=== PATIENT | female | born 1945 | race Hispanic/Latino ===

== ENCOUNTER 2021-02-22 09:36 | Inpatient (IN) | payer MEDICAID, OTHER ==
[2021-02-22] VITALS (9 sets, daily range): BP systolic 91–128; BP diastolic 49–81
[~2021-02-22] VITALS: Ht 137.2 cm; Wt 52.9 kg
[2021-02-22 09:58] LABS: APPEARANCE,URINE CLOUDY (CLEAR); BILIRUBIN,URINE NEGATIVE (NEGATIVE); COLOR,URINE YELLOW (YELLOW); GLUCOSE, URINE (UA) NEGATIVE (NEGATIVE); KETONES,URINE NEGATIVE (NEGATIVE); LEUKOCYTE ESTERASE ,URINE LARGE (NEGATIVE); NITRATE,URINE NEGATIVE (NEGATIVE); OCCULT BLOOD,URINE TRACE-LYSED (NEGATIVE); PH,URINE 6.5 (5.0-8.0); PROTEIN,URINE TRACE mg/dL (NEGATIVE)
[2021-02-22 10:03] LABS: BACTERIA,URINE Few /HPF (None Seen); RBC,URINE 0-1 /HPF (0-1); SQUAMOUS EPITHELIAL CELL,UR Few /HPF (0-2)
[2021-02-22 10:06] LABS: BASOPHILS % (AUTO) 0.4 % (0.0-5.0); HEMATOCRIT 31.2 % (36-48); LYMPHOCYTES % (AUTO) 13.6 % (21.0-51.0); MEAN CORPUSCULAR HGB CONC 33.7 g/dL (32.0-36.0); MEAN CORPUSCULAR VOLUME 95.1 fL (79-99); MONOCYTES % (AUTO) 7.4 % (3.0-13.0); NEUTROPHILS % (AUTO) 77.3 % (40.0-77.0); PLATELET COUNT (AUTO) 196 K/uL (130-400); RED BLOOD CELL COUNT(AUTO) 3.28 MIL/uL (4.00-5.50); RED CELL DISTRIBUTION WIDTH 13.8 % (11.0-15.5); WHITE BLOOD COUNT (AUTO) 10.1 K/uL (4.8-10.8)
[2021-02-22 10:22] LABS: ALBUMIN 3.6 g/dL (3.5-5.0); BILIRUBIN,TOTAL 0.6 mg/dL (0.2-1.0); CREATININE 1.6 mg/dL (0.5-1.5); POTASSIUM 3.3 mmol/L (3.5-5.1); TOTAL PROTEIN, SERUM 7.5 g/dL (6.0-8.3)
[2021-02-22 10:31] LABS: CREATINE KINASE, TOTAL 16 U/L (21-232); LIPASE 99 U/L (114-286); MYOGLOBIN 38 ng/mL (10-92); TROPONIN I < 0.04 ng/mL (0.00-0.06)
[2021-02-22] MEDS ORDERED: ONDANSETRON 4MG INJ ONE (11:34)
[2021-02-22] MEDS ORDERED: MORPHINE 2 MG SYG ONE (11:35)
[2021-02-22] MEDS ORDERED: ONDANSETRON 4MG INJ IV PRN (13:15)
[2021-02-22] MEDS ORDERED: ACETAMINOPHEN 325 MG TAB PO PRN ×2 (13:15)
[2021-02-22] MEDS ORDERED: LACTULOSE 20 GM/30 ML UDCUP PO PRN (13:15)
[2021-02-22] MEDS: 0.9%NACL 1000ML 1,000 ML IV SCH ×2 (13:15→22:20)
[2021-02-22] MEDS ORDERED: 0.9%NACL 1000ML 1,000 ML IV ONE ×2 (13:31→22:19)
[2021-02-22] MEDS ORDERED: ZOSYN 3.375GM+NS 50ML 50 ML IV ONE ×2 (13:31→15:22)
[2021-02-22] MEDS ORDERED: MORPHINE 2 MG SYG IVP PRN (14:00)
[2021-02-22] MEDS ORDERED: POTASSIUM CHLORIDE 10MEQ/100ML 10 MEQ/100 ML ML IV SCH (14:00)
[2021-02-22 15:40] LABS: CREATININE 1.4 mg/dL (0.5-1.5); POTASSIUM 3.9 mmol/L (3.5-5.1)
[2021-02-22] MEDS ORDERED: ROSU20TA31 PO (16:06)
[2021-02-22] MEDS ORDERED: ATEN50TA PO (16:06)
[2021-02-22] MEDS ORDERED: ESOM40VI2 IV (16:06)
[2021-02-22] MEDS ORDERED: IOHEXOL 350 MG/ML 100ML INFUS..BTL IV ONE (17:38)
[2021-02-22 17:49] LABS: HEMATOCRIT 30.5 % (36-48)
[2021-02-22] MEDS ORDERED: HEPARIN 25,000 UNITS/250ML D5W 250 ML IV SCH (18:45)
[2021-02-22 19:44] LABS: HEMATOCRIT 30.4 % (36-48); MEAN CORPUSCULAR HGB CONC 33.2 g/dL (32.0-36.0); MEAN CORPUSCULAR VOLUME 96.2 fL (79-99); RED BLOOD CELL COUNT(AUTO) 3.16 MIL/uL (4.00-5.50); WHITE BLOOD COUNT (AUTO) 9.8 K/uL (4.8-10.8)
[2021-02-22 20:12] LABS: INR > 7.00 (0.85-1.15); PARTIAL THROMBOPLASTIN TIME 102.7 SEC (26.3-35.5); PROTHROMBIN TIME > 90.0 SEC (9.6-11.6)
[2021-02-22] MEDS ORDERED: ZOSYN 3.375GM+NS 50ML 50 ML IV SCH (21:00)
[2021-02-22] MEDS: METOPROLOL TARTRATE 25 MG TAB PO SCH (21:00)
[2021-02-22] MEDS: ZOSYN 3.375GM+NS 50ML 50 ML IV SCH (21:40)
[2021-02-22 22:24] LABS: HEMATOCRIT 29.2 % (36-48)
[2021-02-22 22:52] LABS: CREATINE KINASE, TOTAL 20 U/L (21-232); MYOGLOBIN 53 ng/mL (10-92); TROPONIN I < 0.04 ng/mL (0.00-0.06)
[2021-02-23] VITALS (23 sets, daily range): BP systolic 92–147; BP diastolic 50–99
[2021-02-23 06:40] LABS: BASOPHILS % (AUTO) 0.4 % (0.0-5.0); EOSINOPHILS % (AUTO) 1.8 % (0.0-8.0); HEMATOCRIT 26.7 % (36-48); LYMPHOCYTES % (AUTO) 21.1 % (21.0-51.0); MEAN CORPUSCULAR HEMOGLOBIN 31.5 pg (27.0-33.0); MEAN CORPUSCULAR HGB CONC 31.8 g/dL (32.0-36.0); MEAN CORPUSCULAR VOLUME 98.9 fL (79-99); MONOCYTES % (AUTO) 9.6 % (3.0-13.0); NEUTROPHILS % (AUTO) 66.6 % (40.0-77.0); PLATELET COUNT (AUTO) 158 K/uL (130-400); RED CELL DISTRIBUTION WIDTH 14.1 % (11.0-15.5); WHITE BLOOD COUNT (AUTO) 5.7 K/uL (4.8-10.8)
[2021-02-23 07:11] LABS: CARBON DIOXIDE 27 mmol/L (21-32); CHLORIDE 106 mmol/L (101-111); CREATINE KINASE, TOTAL 12 U/L (21-232); CREATININE 1.2 mg/dL (0.5-1.5); GLOMERULAR FILTR. RATE CALC 46 mL/min (>60); GLUCOSE,RANDOM 110 mg/dL (70-105); MYOGLOBIN 51 ng/mL (10-92); POTASSIUM 3.4 mmol/L (3.5-5.1); SODIUM SERUM 141 mmol/L (136-145); TROPONIN I < 0.04 ng/mL (0.00-0.06); UREA NITROGEN, BLOOD 34 mg/dL (7-18)
[2021-02-23 07:33] LABS: INR > 7.00 (0.85-1.15); PARTIAL THROMBOPLASTIN TIME 108.2 SEC (26.3-35.5)
[2021-02-23 08:00] LABS: ALBUMIN 2.8 g/dL (3.5-5.0); BILIRUBIN,DIRECT 0.2 mg/dL (0.0-0.3); BILIRUBIN,TOTAL 0.8 mg/dL (0.2-1.0)
[2021-02-23 08:20] LABS: SALICYLATE < 2.8 mg/dL (2.8-20.0)
[2021-02-23 08:21] LABS: ACETAMINOPHEN < 1 mcg/mL (10-30)
[2021-02-23] MEDS: METOPROLOL TARTRATE 25 MG TAB PO SCH ×2 (09:00→21:00)
[2021-02-23] MEDS ORDERED: FAMOTIDINE 20MG VIAL IV SCH (09:00)
[2021-02-23 09:42] LABS: AMPHET/METH SCREEN,URINE NEGATIVE (NEGATIVE); BARBITURATE SCREEN, URINE NEGATIVE (NEGATIVE); BENZODIAZEPINES SCREEN,URINE NEGATIVE (NEGATIVE); CANNABINOID SCREEN,URINE NEGATIVE (NEGATIVE); COCAINE SCREEN,URINE NEGATIVE (NEGATIVE); OPIATE SCREEN,URINE NEGATIVE (NEGATIVE); PHENCYCLIDINE SCREEN,URINE NEGATIVE (NEGATIVE)
[2021-02-23] MEDS ORDERED: 0.9%NACL 1000ML 1,000 ML IV ONE (10:43)
[2021-02-23] MEDS: 0.9%NACL 1000ML 1,000 ML IV SCH ×2 (10:44→19:15)
[2021-02-23] MEDS: ZOSYN 3.375GM+NS 50ML 50 ML IV SCH ×2 (10:45→21:11)
[2021-02-23] MEDS ORDERED: POTASSIUM CHLORIDE 20MEQ/100ML 100 ML IV PRN (11:15)
[2021-02-23] MEDS ORDERED: LIDOCAINE HCL-MPF 1% 2ML VIAL IV PRN (11:15)
[2021-02-23] MEDS ORDERED: FAMOTIDINE 20MG VIAL IV ONE (14:05)
[2021-02-23] MEDS ORDERED: [UNRECOGNIZED DRUG - OTHER] PO (17:25)
[2021-02-23] MEDS ORDERED: [UNRECOGNIZED DRUG - OTHER] PO (17:25)
[2021-02-23] MEDS ORDERED: [UNRECOGNIZED DRUG - OTHER] PO (17:25)
[2021-02-23 23:45] LABS: HEMATOCRIT 23.9 % (36-48)
[2021-02-24] VITALS (17 sets, daily range): BP systolic 91–138; BP diastolic 49–65
[2021-02-24] MEDS ORDERED: 0.9%NACL 1000ML 1,000 ML IV ONE ×2 (03:23→14:14)
[2021-02-24 04:18] LABS: BASOPHILS % (AUTO) 0.6 % (0.0-5.0); EOSINOPHILS % (AUTO) 2.2 % (0.0-8.0); HEMATOCRIT 24.1 % (36-48); LYMPHOCYTES % (AUTO) 29.5 % (21.0-51.0); MEAN CORPUSCULAR HEMOGLOBIN 31.2 pg (27.0-33.0); MEAN CORPUSCULAR VOLUME 97.6 fL (79-99); MONOCYTES % (AUTO) 8.6 % (3.0-13.0); NEUTROPHILS % (AUTO) 58.7 % (40.0-77.0); PLATELET COUNT (AUTO) 159 K/uL (130-400); RED BLOOD CELL COUNT(AUTO) 2.47 MIL/uL (4.00-5.50); RED CELL DISTRIBUTION WIDTH 14.3 % (11.0-15.5); WHITE BLOOD COUNT (AUTO) 5.1 K/uL (4.8-10.8)
[2021-02-24 04:45] LABS: CREATININE 1.2 mg/dL (0.5-1.5); POTASSIUM 3.5 mmol/L (3.5-5.1)
[2021-02-24 04:49] LABS: PARTIAL THROMBOPLASTIN TIME 71.6 SEC (26.3-35.5)
[2021-02-24 04:56] LABS: INR 4.26 (0.85-1.15); PROTHROMBIN TIME 40.7 SEC (9.6-11.6)
[2021-02-24] MEDS: 0.9%NACL 1000ML 1,000 ML IV SCH (05:15)
[2021-02-24] MEDS: ZOSYN 3.375GM+NS 50ML 50 ML IV SCH ×2 (08:38→19:56)
[2021-02-24] MEDS: METOPROLOL TARTRATE 25 MG TAB PO SCH ×2 (08:39→19:56)
[2021-02-24] MEDS: FAMOTIDINE 20MG VIAL IV SCH (09:45)
[2021-02-24 19:37] LABS: HEMATOCRIT 26.3 % (36-48)
[2021-02-25] MEDS: 0.9%NACL 1000ML 1,000 ML IV SCH ×3 (00:34→20:40)
[2021-02-25 03:46] VITALS: BP 131/79
[2021-02-25 04:00] VITALS: BP 111/75
[2021-02-25 05:03] LABS: BASOPHILS % (AUTO) 0.7 % (0.0-5.0); EOSINOPHILS % (AUTO) 2.4 % (0.0-8.0); HEMATOCRIT 25.7 % (36-48); LYMPHOCYTES % (AUTO) 26.8 % (21.0-51.0); MEAN CORPUSCULAR HEMOGLOBIN 31.4 pg (27.0-33.0); MEAN CORPUSCULAR HGB CONC 31.5 g/dL (32.0-36.0); MEAN CORPUSCULAR VOLUME 99.6 fL (79-99); MONOCYTES % (AUTO) 8.9 % (3.0-13.0); NEUTROPHILS % (AUTO) 60.8 % (40.0-77.0); PLATELET COUNT (AUTO) 185 K/uL (130-400); RED BLOOD CELL COUNT(AUTO) 2.58 MIL/uL (4.00-5.50); RED CELL DISTRIBUTION WIDTH 14.2 % (11.0-15.5); WHITE BLOOD COUNT (AUTO) 4.6 K/uL (4.8-10.8)
[2021-02-25 05:19] LABS: INR 1.82 (0.85-1.15); PROTHROMBIN TIME 18.8 SEC (9.6-11.6)
[2021-02-25 05:20] LABS: PARTIAL THROMBOPLASTIN TIME 37.6 SEC (26.3-35.5)
[2021-02-25 05:36] LABS: CREATININE 1.1 mg/dL (0.5-1.5); POTASSIUM 3.3 mmol/L (3.5-5.1)
[2021-02-25 08:00] VITALS: BP 130/66
[2021-02-25] MEDS: FAMOTIDINE 20MG VIAL IV SCH (09:25)
[2021-02-25] MEDS: ZOSYN 3.375GM+NS 50ML 50 ML IV SCH (09:26)
[2021-02-25] MEDS: METOPROLOL TARTRATE 25 MG TAB PO SCH ×2 (09:26→20:14)
[2021-02-25 12:00] VITALS: BP 116/71
[2021-02-25] MEDS ORDERED: PEG 3350/NA SULF,BICARB,CL/KCL 4000 ML SOLN PO SCH (13:15)
[2021-02-25 16:00] VITALS: BP 124/70
[2021-02-25 20:00] VITALS: BP 104/77
[2021-02-25] MEDS ORDERED: KCL 20 MEQ ERTAB PO PRN (20:00)
[2021-02-25] MEDS: POTASSIUM CHLORIDE 10% ELIXIR 20 MEQ/15 ML UDCUP PO PRN ×3 (20:39→23:16)
[2021-02-26] VITALS (16 sets, daily range): BP systolic 86–149; BP diastolic 53–102
[2021-02-26 05:58] LABS: BASOPHILS % (AUTO) 0.3 % (0.0-5.0); HEMATOCRIT 27.8 % (36-48); MEAN CORPUSCULAR HGB CONC 32.7 g/dL (32.0-36.0); MEAN CORPUSCULAR VOLUME 97.9 fL (79-99); NEUTROPHILS % (AUTO) 68.5 % (40.0-77.0); PLATELET COUNT (AUTO) 209 K/uL (130-400); RED BLOOD CELL COUNT(AUTO) 2.84 MIL/uL (4.00-5.50); RED CELL DISTRIBUTION WIDTH 14.6 % (11.0-15.5); WHITE BLOOD COUNT (AUTO) 6.2 K/uL (4.8-10.8)
[2021-02-26 06:08] LABS: INR 1.21 (0.85-1.15)
[2021-02-26 06:09] LABS: PARTIAL THROMBOPLASTIN TIME 27.3 SEC (26.3-35.5)
[2021-02-26 06:31] LABS: POTASSIUM 4.3 mmol/L (3.5-5.1)
[2021-02-26] MEDS: 0.9%NACL 1000ML 1,000 ML IV SCH (09:00)
[2021-02-26] MEDS: METOPROLOL TARTRATE 25 MG TAB PO SCH (09:00)
[2021-02-26] MEDS: FAMOTIDINE 20MG VIAL IV SCH (09:00)
[2021-02-26] MEDS ORDERED: PROPOFOL 10 MG/ML 20ML VIAL IV ONE (10:25)
[2021-02-26] MEDS ORDERED: PANT40TA54 PO (15:13)
== END 2021-02-26 18:10 | disposition home or self-care (01) | DRG 393 ==
LOC: EDH 09:36 → EEVIPCON 09:36 → EDHIP 09:37 → 2DH 15:15 → 3CH 02-24 15:43
PROVIDERS: ADMIT Family Medicine; ATTEND Family Medicine
PROC: 0DBB8ZX Excision of Ileum, Via Natural or Artificial Opening Endoscopic, Diagnostic (ICD-10-PCS; principal; 2021-02-26)
PROC: 0DB68ZX Excision of Stomach, Via Natural or Artificial Opening Endoscopic, Diagnostic (ICD-10-PCS; 2021-02-26)
DX: K55.9 Vascular disorder of intestine, unspecified (principal); K25.4 Chronic or unspecified gastric ulcer with hemorrhage; R18.8 Other ascites; N17.9 Acute kidney failure, unspecified; N39.0 Urinary tract infection, site not specified; D68.9 Coagulation defect, unspecified; J98.11 Atelectasis; R58 Hemorrhage, not elsewhere classified; E87.6 Hypokalemia; E78.5 Hyperlipidemia, unspecified; I48.91 Unspecified atrial fibrillation; I12.9 Hypertensive chronic kidney disease with stage 1 through stage 4 chronic kidney disease, or unspecified chronic kidney disease; N18.9 Chronic kidney disease, unspecified; E78.00 Pure hypercholesterolemia, unspecified
CPT/HCPCS: 36415; 43239; 45378; 74174; 74176; 76705; 80048; 80053; 80076; 80305; 81001; 82270; 82550; 82948; 83605; 83690; 83735; 83874; 84145; 84484; 85014; 85018; 85025; 85027; 85384; 85610; 85651; 85730; 86140; 87040; 87088; 93005; 93306; A4606; G0378; G0481; J1644; J2405; J2543; J2704; J3480; J3490; J7030; Q9967